=== PATIENT | male | born 1970 | race Two or more races ===

== ENCOUNTER 2022-02-23 13:07 | Emergency (ER) | payer OTHER ==
[~2022-02-23] VITALS: Ht 182.9 cm; Wt 104.3 kg
[2022-02-23] MEDS ORDERED: COLACE100 MG (13:24)
[2022-02-23] MEDS ORDERED: BACLOFEN20 MG (13:24)
[2022-02-23] MEDS ORDERED: DULCOLAX10 MG (13:24)
[2022-02-23] MEDS ORDERED: CIPRO500 MG PO (17:15)
[2022-02-23] MEDS ORDERED: DUI500 PO (17:17)
== END 2022-02-23 17:35 | disposition home or self-care (01) ==
LOC: ER 13:07
DX: S90.31XA Contusion of right foot, initial encounter (principal); X58.XXXA Exposure to other specified factors, initial encounter; Y93.9 Activity, unspecified; Y92.012 Bathroom of single-family (private) house as the place of occurrence of the external cause; L03.119 Cellulitis of unspecified part of limb; Z20.822 Contact with and (suspected) exposure to COVID-19; Z72.0 Tobacco use